=== PATIENT | female | born 1930 | race Caucasian/White ===

== ENCOUNTER 2016-07-07 11:38 | Inpatient (IN) | payer MEDICARE ==
[2016-07-07] MEDS ORDERED: HYDRALAZINE HCL INJ/PF 20 MG/1 ML SDV IV PRN (20:52)
[2016-07-07] MEDS ORDERED: ONDANSETRON 4 MG TAB.RAPDIS PO PRN (20:53)
[2016-07-07] MEDS ORDERED: MAGNESIUM HYDROXIDE SUSP 30 ML UDCUP PO PRN (20:54)
--- NOTE | 2016-07-07 23:38 | HISTORY AND PHYSICAL E ---
History and Physical NAME: SHANDA CROCKER : 1930 AGE: 85Y ADMITTED: 07/07/2016 ROOM: 321 CHIEF COMPLAINT: "I can't hear." HISTORY OF PRESENT ILLNESS: The patient is an 86-year-old female patient of Dr. Jacob Lauren, who presents to the emergency department at the insistence of her friend, when she was found with slurred speech this morning. She reports first symptoms started last night when she noticed that she could not hear the TV and had to continue escalating the sound until it was maxed out, and then she could still barely hear it. She finally just went to bed. When she awoke this morning, she still had some loss of hearing, but it seemed a little better, and so she elected to head off to [facility], and when she arrived at the [facility], the staff there noted her speech was slurred and immediately called EMS. Upon arrival, EMS noted some tremulousness to the upper and lower extremities and on arrival in the emergency department she continued to have some slurred speech, loss of hearing, and intermittent tremors of the upper and lower extremities. She also reports a global headache that occurred last night that was dull aching across the front of her head, radiating across the entire scalp to the back, lasting approximately a couple of hours. There were no alleviating or exacerbating factors and no other associated symptoms than those noted above. She has never had anything quite like this before. The friend who accompanies her has known her for many, many years, and notes that even though she normally lives alone, there is a son and [id number] who check on her several times through the course of the day, and they are out of town for the last 3 days, down in [place]. The patient, therefore, has been home alone without any assistance that the friend is aware of, and the patient suffers from anxiety. Her friend is concerned this may be an exacerbation of same, notes that she does not believe the patient has been taking her pills as prescribed and is supposed to be on 2 different anti-anxiety medications. Evaluation in the emergency department is relatively unrevealing. She still has persistent loss of hearing as the primary symptom now. Her speech has cleared. The tremors are less violent and less frequent as she has calmed down. Due to her advanced age and symptoms, we were asked to admit her for further evaluation and treatment. ALLERGIES: Penicillin causes swelling, but no difficulty breathing. Occurred many, many years ago. PAST MEDICAL HISTORY: 1. Anxiety. 2. GERD. 3. Urine incontinence. 4. Hypertension. 5. Hyperlipidemia. 6. Insomnia. FAMILY MEDICAL HISTORY: Negative for strokes. SOCIAL HISTORY: The patient is a never smoker. Does not use alcohol. Does not have a living will and is full code. HOME MEDICATIONS: 1. Alprazolam 0.25 mg. 2. Prilosec 20 mg. 3. Hydroxyzine 25 mg. 4. Vesicare 5 mg. 5. Norvasc 10 mg. 6. Lisinopril 40 mg. 7. Trazodone 300 mg. The timing and frequency of these medications is unclear. REVIEW OF SYSTEMS: Total of 10 systems are reviewed by the patient, pertinent positives and negatives are noted above. The remaining systems were negative. PHYSICAL EXAM: VITALS: Blood pressure 160/93, heart rate 92 and irregular with frequent PACs noted on the monitor. She is 99% on room air. Afebrile. GENERAL: In general, this is a well-developed, well-nourished non-obese elderly female lying in bed in no acute distress. HEENT: Extraocular muscles are intact, there is no nystagmus. Pupils are equal, round, and reactive, bilateral tympanic membranes do appear to have some cloudy fluid behind them, but no air/fluid level, no bulging, no erythema, no injection, no scleral icterus. Tongue protrudes midline and oral mucosa is a bit dry. Neck muscles are supple, no lymphadenopathy about the cervical chains. No tenderness to palpation over the maxillary or frontal sinuses and the nasal passages appear a bit cyanotic, but they are not swollen and there is no posterior oropharynx drainage. CHEST: Clear to auscultation bilaterally. VASCULAR: There is no carotid or abdominal bruit. Radial arteries have 2+ pulses and symmetric. CARDIAC: Irregular as noted above, with frequent PACs, but underlying rhythm appears to be normal sinus, and I do hear a normal S1 and S2 with no murmur, rub, or gallop. ABDOMEN: Soft, nondistended, nontender. No palpable masses, good bowel sounds throughout. EXTREMITIES: Strength is 5/5 in the upper and lower extremities with good range of motion at the hips, shoulders, elbows, and knees. NEUROLOGIC: As noted above, plus there is no dysphagia, posterior oropharynx elevates symmetrically with phonation, the patient is able to hear a whispered voice in close proximity to both ears, no loss of sensation to light touch, patellar reflexes are 2+ and symmetric, [id number] is normal and she is able to cross midline by taking her left index finger and touch her right ear and vice versa. There is 3 to 4 beat ankle clonus left greater than right. PSYCH: Normal mood, normal affect. SKIN: Warm, very dry, with tenting, no rash. DIAGNOSTICS: CT of the head report shows chronic small vessel ischemic changes suggestive of microvascular disease, but nothing acute. Labs are reviewed, and the CBC is still pending, but the renal panel shows within normal limits. Her PT/INR is normal. EKG shows a normal sinus rhythm. QT is not prolonged. No ST segment elevation changes to suggest acute ischemia ASSESSMENT: 1. Probable transient ischemic attack. 2. Accelerated hypertension. 3. Hyperlipidemia. 4. Anxiety. PLAN: Admit the patient to a monitored bed overnight in observation. Will check MRI of the brain without contrast, looking for acute ischemic event. Will check carotid Dopplers, looking for occlusive disease. Check an echocardiogram, given the dizziness and other findings to rule out thromboembolic source and valvular abnormalities. Complete the metabolic panel with TSH, free T4, B12, mag, phos. Empiric aspirin 325 mg daily. Resume her home medications once the doses and frequency have been confirmed. If the above workup is negative, then I have a high suspicion for anxiety-induced symptoms. I believe she may be afraid to be at home alone with her family gone to [place], and no one in the home to check on her, and as a result she may have stopped taking her medications as prescribed, including her anxiolytics precipitating today's events. Will know more once the above workup is complete. DICTATING PHYSICIAN: RAOUL PAULINO M.D. [id number] KEITHY#: [id number] ID: [id number] JOB#: [id number] ACCT: [id number] cc:RAOUL PAULINO M.D. >
[2016-07-08 09:04] LABS: ABSOLUTE LYMPHOCYTES (AUTO) 1.2 10^3/uL (0.5-4.7); ABSOLUTE MONOCYTES (AUTO) 0.4 10^3/uL (0.1-1.4); ABSOLUTE NEUT (AUTO) 5.8 10^3/uL (1.7-8.2); BASOPHILS % (AUTO) 0.6 % (0-2); EOSINOPHILS % (AUTO) 0.3 % (0-6); HEMATOCRIT 35.4 % (36.0-47.0); HEMOGLOBIN 11.5 g/dL (12.0-15.5); HGB HCT DIFFERENCE -0.9; MEAN CORPUSCULAR HEMOGLOBIN 28.2 pg (27.0-33.4); MEAN CORPUSCULAR HGB CONC 32.4 g/dL (32.0-36.0); MEAN CORPUSCULAR VOLUME 87 fl (80-97); MONOCYTES % (AUTO) 4.9 % (3-13); RED BLOOD COUNT 4.07 10^6/uL (3.72-5.28); RED CELL DISTRIBUTION WIDTH 14.9 % (11.5-14.0); SEGMENTED NEUTROPHILS % (AUTO) 78.2 % (42-78); WHITE BLOOD COUNT 7.5 10^3/uL (4.0-10.5)
[2016-07-08 09:05] LABS: BASOPHILS % (AUTO) 0.6 % (0-2); EOSINOPHILS % (AUTO) 0.3 % (0-6); HEMATOCRIT 35.8 % (36.0-47.0); HEMOGLOBIN 11.5 g/dL (12.0-15.5); HGB HCT DIFFERENCE -1.3; LYMPHOCYTES % (AUTO) 22.5 % (13-45); MEAN CORPUSCULAR HEMOGLOBIN 27.8 pg (27.0-33.4); MEAN CORPUSCULAR HGB CONC 32.2 g/dL (32.0-36.0); MEAN CORPUSCULAR VOLUME 86 fl (80-97); MONOCYTES % (AUTO) 6.1 % (3-13); RED BLOOD COUNT 4.14 10^6/uL (3.72-5.28); RED CELL DISTRIBUTION WIDTH 14.4 % (11.5-14.0); SEGMENTED NEUTROPHILS % (AUTO) 70.5 % (42-78); WHITE BLOOD COUNT 7.2 10^3/uL (4.0-10.5)
[2016-07-08 09:06] LABS: ABSOLUTE LYMPHOCYTES (AUTO) 1.6 10^3/uL (0.5-4.7); ABSOLUTE MONOCYTES (AUTO) 0.4 10^3/uL (0.1-1.4); ABSOLUTE NEUT (AUTO) 5.1 10^3/uL (1.7-8.2)
[2016-07-08] MEDS ORDERED: ASPIRIN 325 MG TABLET, ENT COATED PO SCH (10:00)
[2016-07-08] MEDS ORDERED: LANSOPRAZOLE 30 MG TAB.RAP.DR PO SCH (10:00)
--- NOTE | 2016-07-08 10:34 | EKG REPORT ---
SEVERITY:- ABNORMAL ECG - SINUS RHYTHM PROBABLE LEFT VENTRICULAR HYPERTROPHY BORDERLINE PROLONGED QT INTERVAL : Confirmed by: Patricia Lynn MD 08-Jul-2016 10:33:43
[2016-07-08] MEDS ORDERED: BACLOFEN 10 MG TABLET PO PRN (11:26)
[2016-07-08] MEDS ORDERED: (PENDING PHARMACY ID) (Hydroxyzine Hcl [Atarax 25 Mg Tablet] 25 MG) PO PRN (11:26)
[2016-07-08] MEDS ORDERED: (PENDING PHARMACY ID) (Atenolol [Tenormin] 25 MG) PO SCH (11:30)
[2016-07-08 11:43] LABS: PROTHROMBIN TIME 13.4 SEC (11.4-15.4)
[2016-07-08] MEDS: DOCUSATE SODIUM 100 MG CAPSULE PO SCH ×2 (11:43→15:24)
[2016-07-08] MEDS: NORMAL SALINE 1000 ML 1,000 ML IV PRN (11:44)
[2016-07-08] MEDS ORDERED: HYDROXYZINE HCL 10 MG TABLET PO PRN (12:10)
[2016-07-08] MEDS ORDERED: LORATADINE/PSEUDOEPHEDRINE SUL 10-240 MG TAB.SR.24H PO ONE (13:00)
[2016-07-08] MEDS ORDERED: FLUTICASONE NASAL SPRAY 50 MCG/SPRY 120 SPRAY/16 GM NASL ONE (13:00)
[2016-07-08] MEDS ORDERED: AMLODIPINE BESYLATE 10 MG TABLET PO ONE (13:00)
[2016-07-08] MEDS ORDERED: ATENOLOL 50 MG TABLET PO ONE (13:00)
[2016-07-08 13:56] LABS: MAGNESIUM 1.7 mg/dL (1.6-2.3); PHOSPHORUS 3.2 mg/dL (2.5-4.5)
[2016-07-08 14:01] LABS: APPEARANCE,URINE CLEAR; BILIRUBIN,URINE NEGATIVE (NEGATIVE); GLUCOSE, URINE NEGATIVE (NEGATIVE); KETONES,URINE NEGATIVE (NEGATIVE); LEUKOCYTE ESTERASE,URINE NEGATIVE (NEGATIVE); NITRITE,URINE NEGATIVE (NEGATIVE); PROTEIN,URINE NEGATIVE (NEGATIVE); URINE SPECIFIC GRAVITY 1.004; UROBILINOGEN,URINE NEGATIVE mg/dL (<2.0)
[2016-07-08 14:29] LABS: THYROID STIMULATING HORMONE 0.32 uIU/mL (0.47-4.68)
[2016-07-08 14:51] LABS: BLOOD UREA NITROGEN 10 mg/dL (7-20); CALCIUM 9.1 mg/dL (8.4-10.2); GLUCOSE 94 mg/dL (75-110)
[2016-07-08 14:52] LABS: ANION GAP 16 (5-19); CARBON DIOXIDE 22 mmol/L (22-30); CHLORIDE 105 mmol/L (98-107); CREATININE RESULT 0.93 mg/dL (0.52-1.25); SODIUM 142.6 mmol/L (137-145)
[2016-07-08] MEDS ORDERED: ENOXAPARIN SODIUM INJ 40 MG/0.4 ML DISP.SYRIN SUBCUT ONE (15:30)
[2016-07-08] MEDS ORDERED: CYANOCOBALAMIN (VITAMIN B-12) INJ 1000 MCG/1 ML VIAL IM ONE (15:50)
--- NOTE | 2016-07-08 16:00 | PDOC PROGRESS REPORT ---
Subjective Progress Note for:: 07/08/16 Subjective:: reason for visit: f/u TIA, hearing loss hospital course: workup so far negative for acute ischemic disease, no clear etiology elucidated as yet. B12 borderline low, will replace. likely has component of sinusitis and inner ear fluid contributing to her hearing loss. no further episodes of tremors and her hearing is improved. she denies fevers, chills, AVALOS, vision loss, tinnitus, chest pain or SOA, unilateral weakness. ROS: total 10 systems reviewed, positives and negatives noted above, remaining systems are negative Physical Exam Vital Signs: Temp Pulse Resp BP Pulse Ox 98.6 F 103 H 16 154/62 H 97 07/08/16 12:12 07/08/16 14:00 07/08/16 12:12 07/08/16 12:12 07/08/16 12:12 General appearance: PRESENT: no acute distress, well-developed, well-nourished Head exam: PRESENT: atraumatic Eye exam: PRESENT: EOMI, PERRLA. ABSENT: scleral icterus Ear exam: PRESENT: other - fluid behind bilat TMs without air fluid level Mouth exam: PRESENT: moist, neck supple Neck exam: PRESENT: full ROM. ABSENT: thyromegaly Respiratory exam: PRESENT: clear to auscultation arelis. ABSENT: accessory muscle use Cardiovascular exam: PRESENT: RRR. ABSENT: systolic murmur, tachycardia Pulses: PRESENT: normal radial pulses GI/Abdominal exam: PRESENT: normal bowel sounds, soft. ABSENT: tenderness Extremities exam: ABSENT: pedal edema, tenderness Musculoskeletal exam: PRESENT: full ROM. ABSENT: tenderness Neurological exam: PRESENT: alert, awake, oriented to person, oriented to place , oriented to time, oriented to situation, reflexes normal. ABSENT: motor sensory deficit, normal gait Psychiatric exam: PRESENT: appropriate affect, normal mood Skin exam: PRESENT: warm. ABSENT: dry, erythema Results Laboratory Results: 07/08/16 07/08/16 13:25 13:25 Phosphorus 3.2 Magnesium 1.7 Vitamin B12 382.0 TSH 0.32 L Free T4 1.62 Impressions: Head CT 07/08/16 00:00 IMPRESSION: No acute findings. Head MRI 07/08/16 09:00 IMPRESSION: ATROPHY AND CHRONIC MICRO-VASCULAR ISCHEMIC CHANGES. OTHERWISE NORMAL MRI OF THE BRAIN WITHOUT INTRAVENOUS GADOLINIUM CONTRAST. Carotid Doppler Study 07/08/16 09:01 IMPRESSION: NO HEMODYNAMICALLY SIGNIFICANT STENOSIS. Assessment & Plan - Diagnosis (1) TIA (transient ischemic attack) Qualifiers: Transient cerebral ischemia type: unspecified Qualified Code(s): G45.9 - Transient cerebral ischemic attack, unspecified Is this a current diagnosis for this admission?: YesPlan: MRI non diagnostic for ischemic disease, carotids show non occlusive plaque with good vertebral flow; echo still pending. (2) Accelerated hypertension Is this a current diagnosis for this admission?: YesPlan: resume home regimen now that we've clarified dosing and intervals, titrate to effect (3) Anxiety Is this a current diagnosis for this admission?: YesPlan: i still there is a component of this in play here, will resume her home regimen and monitor for effect. (4) Hearing loss Qualifiers: Hearing loss type: other Laterality: right Contralateral hearing status: unspecified Qualified Code(s): H91.8X1 - Other specified hearing loss, right ear Is this a current diagnosis for this admission?: YesPlan: suspect non infectious otitis, will add antihistamine and topical nasal steroids to see if we can reduce the fluid and improve her hearing. she will need ENT referral as outpt, not available at this facility, for further eval and management. - Time Time Spent with patient: 25-34 minutes Anticipated discharge: Home Within: within 24 hours
--- NOTE | 2016-07-08 16:43 | XCELERA REPORT ---
[address] [address] Transthoracic Echocardiogram Report Name: SHANDA CROCKER Age: 85 yrs Gender: Female : 1930 Patient Status: Inpatient Patient Location: [id number]\S\321\S\B Study Date: 07/08/2016 02:38 PM Height: 64 in Weight: 145 lb BSA: 1.7 m2 Procedure: A complete two-dimensional transthoracic echocardiogram was performed (2D, M-mode, spectral and color flow Doppler). The study was technically adequate with some images being suboptimal in quality. Reason For Study: cva protocol Ordering Physician: RAOUL PAULINO Performed By: Odilia Fatima Interpretation Summary The left ventricular ejection fraction is within normal limits. Doppler measurements suggest pseudonormalized left ventricular relaxation, which is associated with grade II/IV or mild to moderate diastolic dysfunction There is mild concentric left ventricular hypertrophy. The left ventricle is grossly normal size. Wall motion cannot be accurately commented on, but no definite regional wall motion abnormalities noted. The right ventricular systolic function is normal. The right atrium is normal. The left atrial size is normal. There is no mitral valve stenosis. There is a mild amount of mitral regurgitation There is a mild amount of aortic regurgitation There is no aortic valve stenosis There is a mild amount of tricuspid regurgitation There is moderate pulmonary hypertension by echo Right ventricular systolic pressure is estimated to be elevated at 50- 60mmHg. The aortic root is not well visualized but is probably normal size. The inferior vena cava appeared normal and decreased > 50% with respiration (RAP 5-10 mmHg) There is no pericardial effusion. No definite cardiac source of CVA/TIA noted on this particular trans- thoracic study. Consider SHARA if clinically indicated. May consider mobile cardiac telemetry monitoring (MCT) for ruling out transient AFIB. MMode/2D Measurements \T\ Calculations RVDd: 2.5 cm LVIDd: 4.9 cm FS: 42.4 % Ao root diam: 2.8 cm IVSd: 0.98 cm LVIDs: 2.8 cm EDV(Teich): 110.6 ml LVPWd: 1.00 cmESV(Teich): 29.5 ml Ao root area: 6.2 cm2 EF(Teich): 73.4 % LA dimension: 3.5 cm LVOT diam: 2.0 cm LVOT area: 3.3 cm2 Doppler Measurements \T\ Calculations MV E max hemant: MV P1/2t max hemant: Ao V2 max: AI max hemant: 83.9 cm/sec 82.9 cm/sec 189.1 cm/sec 441.9 cm/sec MV A max hemant: MV P1/2t: 52.5 msec Ao max PG: AI max P.0 cm/sec MVA(P1/2t): 4.2 cm2 14.3 mmHg 78.1 mmHg MV E/A: 0.75 MV dec slope: PONCE(V,D): 2.0 cm2 AI dec slope: 462.6 cm/sec2 218.2 cm/sec2 AI P1/2t: 593.1 msec LV V1 max PG: PA V2 max: TR max hemant: 5.4 mmHg 98.7 cm/sec 393.6 cm/sec LV V1 max: PA max P.9 mmHg TR max P.0 cm/sec 62.0 mmHg Left Ventricle The left ventricle is grossly normal size. There is mild concentric left ventricular hypertrophy. The left ventricular ejection fraction is within normal limits. Doppler measurements suggest pseudonormalized left ventricular relaxation, which is associated with grade II/IV or mild to moderate diastolic dysfunction. Wall motion cannot be accurately commented on, but no definite regional wall motion abnormalities noted. Right Ventricle The right ventricle is grossly normal size. There is normal right ventricular wall thickness. The right ventricular systolic function is normal. Atria The right atrium is normal. The left atrial size is normal. Interarterial septum not well visualized and not well dopplered. Cannot comment on ASD/PFO presence. Mitral Valve There is mild mitral leaflet calcification. There is no mitral valve stenosis. There is a mild amount of mitral regurgitation. Aortic Valve The aortic valve is mildly calcified. The aortic valve is trileaflet. There is no aortic valve stenosis. There is a mild amount of aortic regurgitation. Tricuspid Valve The tricuspid valve is not well visualized, but is grossly normal. There is no tricuspid stenosis. There is a mild amount of tricuspid regurgitation. There is moderate pulmonary hypertension by echo. Right ventricular systolic pressure is estimated to be elevated at 50-60mmHg. Pulmonic Valve The pulmonic valve is not well visualized. Great Vessels The aortic root is not well visualized but is probably normal size. The inferior vena cava appeared normal and decreased > 50% with respiration (RAP 5-10 mmHg). Effusions There is no pericardial effusion. Incidental Findings No definite cardiac source of CVA/TIA noted on this particular trans- thoracic study. Consider SHARA if clinically indicated. May consider mobile cardiac telemetry monitoring (MCT) for ruling out transient AFIB. : RAOUL PAULINO > Michael Chand
[2016-07-08] MEDS ORDERED: TRAZODONE HCL 50 MG TABLET PO SCH (22:00)
[2016-07-08] MEDS ORDERED: FLUTICASONE NASAL SPRAY 50 MCG/SPRY 120 SPRAY/16 GM NASL SCH (22:00)
[2016-07-08] MEDS ORDERED: (PENDING PHARMACY ID) (Trazodone Hcl [Desyrel] 300 MG) PO SCH (22:00)
[2016-07-09] MEDS: NORMAL SALINE 1000 ML 1,000 ML IV PRN (01:30)
[2016-07-09 09:02] VITALS: BP 144/66
[2016-07-09] MEDS ORDERED: LORATADINE/PSEUDOEPHEDRINE SUL 10-240 MG TAB.SR.24H PO SCH (10:00)
[2016-07-09] MEDS ORDERED: ENOXAPARIN SODIUM INJ 40 MG/0.4 ML DISP.SYRIN SUBCUT SCH (10:00)
[2016-07-09] MEDS ORDERED: ATENOLOL 50 MG TABLET PO SCH (10:00)
[2016-07-09] MEDS ORDERED: LISINOPRIL 10 MG TABLET PO SCH (10:00)
[2016-07-09] MEDS ORDERED: AMLODIPINE BESYLATE 10 MG TABLET PO SCH (10:00)
--- NOTE | 2016-07-09 19:14 | DISCHARGE SUMMARY E ---
Discharge Summary NAME: SHANDA CROCKER : 1930 AGE: 85Y ADMITTED: 07/08/2016 DISCHARGED: 07/09/2016 DISCHARGE DIAGNOSES: 1. Possible TIA. 2. Hearing loss, likely secondary to otitis media. 3. Accelerated hypertension due to medical noncompliance. 4. Anxiety. CHRONIC MEDICAL CONDITIONS INCLUDE: 1. Anxiety. 2. GERD. 3. Urinary incontinence. 4. Hypertension. 5. Hyperlipidemia. 6. Insomnia. DISCHARGE MEDICATIONS: 1. Amlodipine 10 mg daily. 2. Atenolol 25 mg daily. 3. Baclofen 10 mg at bedtime as needed. 4. Flonase 1 spray in both naris b.i.d. for a week. 5. Loratadine/pseudoephedrine 1 tablet daily for 7 days. 6. Hydroxyzine 25 mg t.i.d. as needed. 7. Lisinopril 40 mg daily. 8. Trazodone 300 mg at bedtime. CHIEF COMPLAINT: "I can't hear." HISTORY OF PRESENT ILLNESS: The patient is an 86-year-old female patient of Dr. Jacob Lauren who presented to the emergency department at the insistence of friend when she was found with slurred speech on the morning of admission. She reports her symptoms first started the night prior when she noticed she could no longer hear the TV in spite of escalating volume. She elected to go to bed and when she awoke the next morning she still had similar loss of hearing but elected to go to her [facility] for daily bingo. When she arrived, the staff noted her speech was slurred and she appeared hard of hearing. They called EMS and she was transported to the emergency department for evaluation where no focal deficits were found and no critical abnormalities noted. We were asked to admit for further evaluation and management. The friend who accompanied her has known her for many years and notes that she lives alone, though there is a son and [id number] who check on her several times a week. They have been out of town for the past 3 days. Without this assistance and reassurance, her friend's concern has exacerbated her anxiety, accounting for many of her symptoms. The patient was admitted to a monitored bed and showed no signs of cardiac dysrhythmias overnight. She underwent an extensive laboratory and imaging evaluation, including a CBC that shows only a mild normocytic, normochromic anemia with an H and H of 11.5 and 36 that is stable, normal coags, normal renal panel, magnesium low normal at 1.7, TSH was low at 0.32, but her free T4 was normal at 1.62, troponins were negative, and EKG was nondiagnostic for acute ischemia, vitamin B12 was low normal at 382, and she did receive 1 mg of cyanocobalamin while she was here, and a urinalysis was negative. Imaging failed to reveal any significant abnormalities, though her MRI did show chronic microvascular ischemic changes, nothing acute was found, an echocardiogram showed grade 2 [id number]-jf-[id number] diastolic dysfunction, mild concentric left ventricular hypertrophy, and mild MR, AR, and TR with moderate pulmonary hypertension. Carotid Dopplers showed bilateral plaque but no significant stenosis with good flow velocities and antegrade flow through the vertebral arteries as well; head CT showed chronic changes suggestive of microvascular disease. On physical exam, she had bulging tympanic membranes with visible fluid bilaterally and swollen paranasal passages suggestive of possible acute rhinitis with resultant eustachian tube fluid perhaps accounting for some of her hearing loss. She was started on pseudoephedrine, loratadine and Flonase nasal spray with good improvement in her hearing. However, she still remains diminished and I suggested an ear, nose and throat outpatient evaluation to confirm resolution and to perform auditory testing before allowing her to return to operating a motor vehicle. She states her family and her friend have stepped up and will provide transportation for necessary normal activities of daily living and she will abstain from driving until she gets up with her primary doctor and the ear, nose and throat provider. Staff have arranged an outpatient followup with both. On the day of discharge, the patient is alert and oriented to person, place and time. Her hearing has improved, though not quite back to normal. Speech is clear and lucid, thoughts are normal, mood and affect are appropriate, she shows no focal neurologic deficit on confrontational testing at the bedside. Chest is clear to auscultation bilaterally. Cardiac is regular rate and rhythm; no change from previous. Her strength is 5/5 and she is up ambulating in the room without difficulty without assistance. Her vital signs are stable. At this point, the patient is stable for discharge home. She is to follow up with her primary care provider next week and keep the appointment with ear, nose and throat provider. She is to return to the emergency department for any decline in her condition or worsening of her symptoms. Both she and her friend at the bedside express clear understanding of medical direction and agreement with the treatment plan and willingness to return to the emergency department for any decompensation. All questions were asked and answered to their satisfaction. They seemed pleased with the care received while here. DICTATING PHYSICIAN: RAOUL PAULINO M.D. [id number] PHY#: [id number] ID: [id number] JOB#: [id number] ACCT: [id number] cc:RAOUL PAULINO M.D. >
== END 2016-07-09 10:05 | disposition home or self-care (01) | DRG 69 ==
LOC: ER 11:38 → EH 22:20 → 3W 07-08 08:30 → OBSVTOIN 07-08 16:19
PROVIDERS: ADMIT Internal Medicine; ATTEND Internal Medicine
DX: G45.9 Transient cerebral ischemic attack, unspecified (principal); H66.91 Otitis media, unspecified, right ear; H91.8X1 Other specified hearing loss, right ear; F41.9 Anxiety disorder, unspecified; I27.2 Other secondary pulmonary hypertension; J32.9 Chronic sinusitis, unspecified; K21.9 Gastro-esophageal reflux disease without esophagitis; I10 Essential (primary) hypertension; E78.5 Hyperlipidemia, unspecified; G47.00 Insomnia, unspecified; Z79.899 Other long term (current) drug therapy; Z60.2 Problems related to living alone; R47.81 Slurred speech; Z88.0 Allergy status to penicillin
CPT/HCPCS: 36415; 70450; 70551; 80048; 81001; 82607; 83735; 84100; 84439; 84443; 84484; 85025; 85610; 93005; 93010; 93306; 93880; 99285; G0378; J1650; J3420; J3490; J7030

== ENCOUNTER 2017-04-25 14:41 | Emergency (ER) | payer MEDICARE ==
[2017-04-25 16:17] LABS: APPEARANCE,URINE CLEAR; BILIRUBIN,URINE NEGATIVE (NEGATIVE); COLOR,URINE STRAW; GLUCOSE, URINE NEGATIVE (NEGATIVE); KETONES,URINE NEGATIVE (NEGATIVE); LEUKOCYTE ESTERASE,URINE SMALL (NEGATIVE); NITRITE,URINE NEGATIVE (NEGATIVE); PROTEIN,URINE NEGATIVE (NEGATIVE); URINE SPECIFIC GRAVITY 1.008; UROBILINOGEN,URINE NEGATIVE mg/dL (<2.0)
--- NOTE | 2017-04-25 17:08 | ER Document Report ---
ED Foreign Body - General Chief Complaint: Foreign Body in Ear Stated Complaint: OBJECT IN LT EAR Time Seen by Provider: 04/25/17 16:12 Notes: Patient states she was referred here by primary care physician at the assisted living facility. She states she was told that she had a piece of cotton in her left ear. She denies having any symptoms involving the left ear. She states she does have some burning and frequency of urine. It is worse with urinating better without. No radiation of the symptoms. Symptoms are mild to moderate. They are intermittent. No vomiting or abdominal pain. No fevers. No lightheadedness or dizziness. TRAVEL OUTSIDE OF THE [place] IN LAST 30 DAYS: No - Related Data Allergies/Adverse Reactions: Penicillins Allergy (Verified 04/25/17 14:45) Past Medical History - General Information source: Patient - Social History Smoking Status: Never Smoker Chew tobacco use (# tins/day): No Frequency of alcohol use: None Drug Abuse: None Family History: Reviewed & Not Pertinent Patient has suicidal ideation: No Patient has homicidal ideation: No - Past Medical History Cardiac Medical History: Reports: Hx Hypertension Renal/ Medical History: Denies: Hx Peritoneal Dialysis Musculoskeltal Medical History: Reports Hx Arthritis Psychiatric Medical History: Reports: Hx Depression - Immunizations Hx Diphtheria, Pertussis, Tetanus Vaccination: Yes Review of Systems - Review of Systems Constitutional: denies: Chills, Fever Cardiovascular: denies: Chest pain, Palpitations Respiratory: denies: Cough, Short of breath -: Yes All other systems reviewed and negative Physical Exam - Vital signs Vitals: Temp Pulse Resp BP Pulse Ox 98.6 F 84 16 143/49 H 98 04/25/17 15:03 04/25/17 15:03 04/25/17 15:03 04/25/17 15:03 04/25/17 15:03 Interpretation: Normal - General General appearance: Appears well, Alert - HEENT Head: Normocephalic, Atraumatic Eyes: Normal Pupils: PERRL Ears: Normal External canal: Normal Tympanic membrane: Normal Mouth/Lips: Normal Mucous membranes: Moist - Respiratory Respiratory status: No respiratory distress Chest status: Nontender Breath sounds: Normal Chest palpation: Normal - Cardiovascular Rhythm: Regular Heart sounds: Normal auscultation Murmur: No - Abdominal Inspection: Normal Distension: No distension Bowel sounds: Normal Tenderness: Nontender Organomegaly: No organomegaly - Back Back: Normal, Nontender - Extremities General upper extremity: Normal inspection, Nontender, Normal color, Normal ROM , Normal temperature General lower extremity: Normal inspection, Nontender, Normal color, Normal ROM , Normal temperature, Normal weight bearing. No: Myron's sign - Neurological Neuro grossly intact: Yes Cognition: Normal Orientation: AAOx4 Maritza Coma Scale Eye Opening: Spontaneous Golden Coma Scale Verbal: Oriented Maritza Coma Scale Motor: Obeys Commands Golden Coma Scale Total: 15 Speech: Normal Motor strength normal: LUE, RUE, LLE, RLE Sensory: Normal - Psychological Associated symptoms: Normal affect, Normal mood - Skin Skin Temperature: Warm Skin Moisture: Dry Skin Color: Normal Course - Vital Signs Vital signs: Temp Pulse Resp BP Pulse Ox 98.6 F 84 16 143/49 H 98 04/25/17 15:03 04/25/17 15:03 04/25/17 15:03 04/25/17 15:03 04/25/17 15:03 - Laboratory Laboratory results interpreted by me: 04/25/17 15:10 Ur Leukocyte Esterase SMALL H Discharge - Discharge Clinical Impression: Dysuria Condition: Stable Disposition: HOME, SELF-CARE Referrals: [facility] [Primary Care Provider] - Follow up as needed
[2017-04-25 17:14] VITALS: BP 176/65
== END 2017-04-25 17:15 | disposition home or self-care (01) ==
LOC: ER 14:41
DX: R30.0 Dysuria (principal); R35.0 Frequency of micturition; I10 Essential (primary) hypertension; Z88.0 Allergy status to penicillin
CPT/HCPCS: 81001; 99283